=== PATIENT | female | born 1985 | race Caucasian/White ===

== ENCOUNTER 2020-03-13 09:36 | Observation (INO) | payer MEDICAID ==
[~2020-03-13] VITALS: Ht 165.1 cm; Wt 100.5 kg
[~2020-03-13 09:36] MED LIST: CALC500T29 PO; DOCU-131 PO; DOCU100C33 PO; FERR325T18 PO; IBUP-1223 PO; OXYC-302 PO; PREN-2 PO
[2020-03-13 09:52] VITALS: BP 105/59
[2020-03-13] MEDS ORDERED: PREN1TAB60 PO (10:57)
[2020-03-13 11:43] LABS: MICROSCOPIC INDICATED
[2020-03-13] MEDS ORDERED: BETAMETHASONE 6 MG/ML, 5ML IM SCH (12:30)
[2020-03-13] MEDS ORDERED: ACETAMINOPHEN 325 MG TABLET ONE (12:35)
[2020-03-13] MEDS ORDERED: BETAMETHASONE 6 MG/ML, 5ML IM ONE (12:35)
[2020-03-13] MEDS ORDERED: NITROFURANTOIN (MACROBID) 100 MG CAPSULE ONE (12:36)
[2020-03-13] MEDS ORDERED: ACETAMINOPHEN 325 MG TABLET PO PRN (13:00)
[2020-03-13] MEDS ORDERED: NITROFURANTOIN (MACROBID) 100 MG CAPSULE PO SCH ×2 (13:00→21:00)
== END 2020-03-13 13:05 | disposition home or self-care (01) ==
LOC: LDOP 09:36 → LDIP 11:30
PROVIDERS: ADMIT Obstetrics & Gynecology; ATTEND Obstetrics & Gynecology
DX: O62.9 Abnormality of forces of labor, unspecified (principal); O21.2 Late vomiting of pregnancy; O23.43 Unspecified infection of urinary tract in pregnancy, third trimester; Z3A.33 33 weeks gestation of pregnancy
CPT/HCPCS: 59025; 81001; 87086; 96372; G0378; J0702

== ENCOUNTER 2020-03-14 12:15 | Outpatient (CLI) | payer MEDICAID ==
[~2020-03-14 12:15] MED LIST changes: -OXYC-302 PO; +OXYC1TAB14 PO; +PREN1TAB60 PO
[2020-03-14] MEDS ORDERED: BETAMETHASONE 6 MG/ML, 5ML IM STA (12:18)
== END 2020-03-14 12:30 | disposition home or self-care (01) ==
LOC: LDOP 12:15
PROVIDERS: ATTEND Obstetrics & Gynecology
DX: O62.9 Abnormality of forces of labor, unspecified (principal); O21.2 Late vomiting of pregnancy; O23.43 Unspecified infection of urinary tract in pregnancy, third trimester; Z3A.33 33 weeks gestation of pregnancy
CPT/HCPCS: 96372; J0702

== ENCOUNTER 2020-04-06 03:58 | Observation (INO) | payer MEDICAID ==
[~2020-04-06] VITALS: Ht 154.9 cm; Wt 100.0 kg
[2020-04-06 04:22] VITALS: BP 123/59
[2020-04-06 04:32] LABS: MICROSCOPIC INDICATED
[2020-04-06] MEDS ORDERED: OXYcodone/APAP 5/325MG TABLET ONE (05:25)
[2020-04-06] MEDS ORDERED: OXYcodone/APAP 5/325MG TABLET PO ONE (05:30)
== END 2020-04-06 07:39 | disposition home or self-care (01) ==
LOC: LDOP 03:58 → LDIP 05:37
PROVIDERS: ADMIT Obstetrics & Gynecology; ATTEND Obstetrics & Gynecology
DX: O62.9 Abnormality of forces of labor, unspecified (principal); Z3A.36 36 weeks gestation of pregnancy; Z87.891 Personal history of nicotine dependence; Z79.899 Other long term (current) drug therapy
CPT/HCPCS: 59025; 81001; 87086; G0378

== ENCOUNTER 2020-04-23 15:14 | Inpatient (IN) | payer MEDICAID ==
[~2020-04-23] VITALS: Ht 165.1 cm; Wt 100.0 kg
[2020-04-23 15:19] VITALS: BP 114/59
[2020-04-23] MEDS ORDERED: FENTANYL PF 100 MCG/2ML IV PRN (16:00)
[2020-04-23] MEDS ORDERED: TERBUTALINE 1 MG/ML, 1ML SQ PRN (16:00)
[2020-04-23] MEDS ORDERED: TERBUTALINE 1 MG/ML, 1ML IVPush PRN (16:00)
[2020-04-23] MEDS ORDERED: OXYTOCIN 30U/ 0.9% NaCL 500ML 500 ML IV ONE (16:00)
[2020-04-23] MEDS ORDERED: D5%-LACTATED RINGERS 1,000 ML IV SCH (16:00)
[2020-04-23] MEDS ORDERED: FENTANYL PF 100 MCG/2ML IVPush PRN (16:00)
[2020-04-23] MEDS ORDERED: ONDANSETRON 2MG/ML, 2ML IVPush PRN (16:00)
[2020-04-23] MEDS: LACTATED RINGERS 1,000 ML IV SCH ×2 (16:40→17:40)
[2020-04-23 16:45] LABS: BASOPHILS % (AUTO) 1 % (0-1); EOSINOPHILS % (AUTO) 1 % (1-7); LYMPHOCYTES % (AUTO) 17 % (22-44); MEAN CORPUSCULAR HEMOGLOBIN 30.3 pg (27.0-34.8); MEAN CORPUSCULAR HGB CONC 34.4 g/dL (32.4-35.8); MONOCYTES % (AUTO) 4 % (2-9); NEUTROPHILS % (AUTO) 78 % (42-75); PLATELET COUNT 200 x10^3/uL (130-400); RED BLOOD COUNT 3.99 x10^6/uL (3.82-5.3); RED CELL DISTRIBUTION WIDTH 15.1 % (9.6-15.2)
[2020-04-23 16:51] LABS: MD NO
[2020-04-23 17:43] VITALS: BP 114/59
[2020-04-23] MEDS ORDERED: OXYTOCIN 30U/ 0.9% NaCL 500ML 500 ML ONE (18:14)
[2020-04-23] MEDS ORDERED: LIDOCAINE 1%, 20ML ONE (18:14)
[2020-04-23] MEDS ORDERED: NEWBORN KIT ONE (18:14)
[2020-04-23] MEDS ORDERED: MISOPROSTOL 200 MCG TABLET ONE (18:14)
[2020-04-23] MEDS ORDERED: LACTATED RINGERS 1,000 ML IV SCH ×2 (19:00→21:30)
[2020-04-23] MEDS ORDERED: FENTANYL/BUPIV./NS/PF 250 ML EPIDCONT SCH ×2 (19:00→21:30)
[2020-04-23] MEDS ORDERED: LACTATED RINGERS 1,000 ML IVBOLUS PRN ×2 (19:00→21:30)
[2020-04-23] MEDS ORDERED: EPHEDRINE 50 MG/ML, 1ML IVPush PRN ×2 (19:00→21:30)
[2020-04-23] MEDS ORDERED: NALOXONE 0.4 MG/ML, 1ML IVPush PRN ×2 (19:00→21:30)
[2020-04-23 19:02] VITALS: BP 108/58
[2020-04-23] MEDS ORDERED: FENTANYL PF 100 MCG/2ML ONE (20:31)
[2020-04-23] MEDS ORDERED: FENTANYL/BUPIV./NS/PF 250 ML EPIDCONT ONE (21:14)
[2020-04-23] MEDS ORDERED: BUPIVACAINE 0.25% ONE (21:15)
[2020-04-23 21:38] LABS: AMPHETAMINE SCREEN, URINE Negative (Negative); BARBITURATE SCREEN, URINE Negative (Negative); BENZODIAZEPINE SCREEN, URINE Negative (Negative); CANNABINOID SCREEN, URINE Negative (Negative); COCAINE SCREEN, URINE Negative (Negative); METHADONE SCREEN, URINE Negative (Negative); OPIATE SCREEN, URINE Negative (Negative)
[2020-04-24] MEDS ORDERED: OXYTOCIN 30U/ 0.9% NaCL 500ML 500 ML IV PRN (02:00)
[2020-04-24] MEDS ORDERED: OXYTOCIN 30U/ 0.9% NaCL 500ML 500 ML ONE (07:06)
[2020-04-24] MEDS ORDERED: IBUPROFEN 600 MG TABLET ONE (07:06)
[2020-04-24] MEDS: IBUPROFEN 600 MG TABLET PO PRN ×3 (07:20→21:14)
[2020-04-24] MEDS: OXYTOCIN 30U/ 0.9% NaCL 500ML 500 ML IV SCH ×2 (07:40→18:00)
[2020-04-24] MEDS ORDERED: BISACODYL 10 MG SUPP PR PRN (08:00)
[2020-04-24] MEDS ORDERED: MISOPROSTOL 200 MCG TABLET PO PRN (08:00)
[2020-04-24] MEDS ORDERED: SIMETHICONE 80 MG CHEW TAB PO PRN (08:00)
[2020-04-24] MEDS ORDERED: OXYcodone/APAP 5/325MG TABLET PO PRN ×2 (08:00)
[2020-04-24] MEDS: PRENATAL VIT/IRON/FA 1 EACH TABLET PO SCH (09:00)
[2020-04-24 11:46] VITALS: BP 98/62
[2020-04-24 17:25] VITALS: BP 105/68
[2020-04-24 19:26] VITALS: BP 97/63
[2020-04-24 20:19] LABS: BASOPHILS % (AUTO) 0 % (0-1); EOSINOPHILS % (AUTO) 0 % (1-7); LYMPHOCYTES % (AUTO) 16 % (22-44); MEAN CORPUSCULAR HEMOGLOBIN 30.6 pg (27.0-34.8); MEAN CORPUSCULAR HGB CONC 34.3 g/dL (32.4-35.8); MEAN PLATELET VOLUME 9.1 fL (7.4-10.4); MONOCYTES % (AUTO) 6 % (2-9); NEUTROPHILS % (AUTO) 77 % (42-75); PLATELET COUNT 203 x10^3/uL (130-400); RED BLOOD COUNT 3.57 x10^6/uL (3.82-5.3); RED CELL DISTRIBUTION WIDTH 15.5 % (9.6-15.2)
[2020-04-24 20:21] LABS: MD NO
[2020-04-24] MEDS: DOCUSATE 100 MG CAPSULE PO PRN (21:14)
[2020-04-24 23:26] VITALS: BP 113/71
[2020-04-25 04:51] VITALS: BP 91/56
[2020-04-25 07:00] VITALS: BP 107/70
[2020-04-25] MEDS: DOCUSATE 100 MG CAPSULE PO PRN (08:23)
[2020-04-25] MEDS: PRENATAL VIT/IRON/FA 1 EACH TABLET PO SCH (08:23)
[2020-04-25] MEDS: IBUPROFEN 600 MG TABLET PO PRN (08:23)
== END 2020-04-25 08:45 | disposition home or self-care (01) | DRG 560 ==
LOC: LDOP 15:14 → LDIP 15:54 → 2NW 04-24 09:00
PROVIDERS: ADMIT Obstetrics & Gynecology; ATTEND Obstetrics & Gynecology
PROC: 10E0XZZ Delivery of Products of Conception, External Approach (ICD-10-PCS; principal; 2020-04-24)
PROC: 10907ZC Drainage of Amniotic Fluid, Therapeutic from Products of Conception, Via Natural or Artificial Opening (ICD-10-PCS; 2020-04-24)
PROC: 3E0R3BZ Introduction of Anesthetic Agent into Spinal Canal, Percutaneous Approach (ICD-10-PCS; 2020-04-24)
PROC: 00HU33Z Insertion of Infusion Device into Spinal Canal, Percutaneous Approach (ICD-10-PCS; 2020-04-24)
DX: O76 Abnormality in fetal heart rate and rhythm complicating labor and delivery (principal); Z3A.39 39 weeks gestation of pregnancy; Z37.0 Single live birth; Z20.822 Contact with and (suspected) exposure to COVID-19
CPT/HCPCS: 36415; 80307; 82247; 85025; 86592; 86850; 86900; 87635; G0378; J3010; J2590; J7120